=== PATIENT | female | born 1980 | race Caucasian/White ===

== ENCOUNTER 2022-01-09 17:32 | Emergency (ER) | payer OTHER, SELFPAY ==
--- NOTE | ~2022-01-09 | CT_ITS ---
EXAMINATION: CT brain wo con DATE: 01/09/2022 17:46 INDICATION: Headache, significantly worsened after an episode of coughing, accompanied by nausea and vomiting. Family history of cerebral aneurysm. TECHNIQUE: Computed tomography (CT) of the head was performed without intravenous contrast. The mA wa s adjusted according to patient size. Iterative reconstruction technique was employed. The dose-lengt h product was 605.33 mGy-cm. COMPARISON: None FINDINGS: Irregular 2-3 mm thick hyperdensity along the right tentorium, similar change but less pronounced on the left medial tentorium. No hydrocephalus, mass, or herniation. No acute ischemic infarct. Unremarkable dural venous sinus attenuation. No acute osseous abnormality. The aerated spaces are clear. IMPRESSION: Thin subdural hemorrhage along the tentorium. Findings not typical for aneurysmal hemorrhage. In the absence of traumatic history, consideration could be given to MR or CT Venogram of the head to evalua te the dural venous sinuses, particularly if there is a history of hypercoagulability or dehydration. Results reported telephonically to Daphnie Mccabe PA-C by Dr. Vasques at 6:10 PM on 01/09/2022. Reviewed, dictated and finalized at location [facility]. IMPRESSION: Thin subdural hemorrhage along the tentorium. Findings not typical for aneurysm al hemorrhage. In the absence of traumatic history, consideration could be give n to MR or CT Venogram of the head to evaluate the dural venous sinuses, partic ularly if there is a history of hypercoagulability or dehydration. Results reported telephonically to Daphnie Mccabe PA-C by Dr. Vasques at 6:10 PM o n 01/09/2022.
[2022-01-09 17:13] VITALS: BP 124/80; PULSE 83; RESP 16; TEMP 36.3; O2SAT 99
--- NOTE | 2022-01-09 17:38 | ED.HA ---
HPI - Headache General Chief Complaint: Headache Stated Complaint: n/v headache Source: patient Mode of arrival: wheelchair Limitations: no limitations History of Present Illness HPI Narrative: This is a 41-year-old female that presents to the emergency department for a headache. Ongoing since last night. Associated with nausea and vomiting. Reports she coughed today which suddenly made the headache worse. She has not taken anything for pain yet today. Denies fever, vision changes, or focal numbness or weakness. Related Data Home Medications Medication Instructions Recorded Confirmed No Home Medications 01/09/22 01/09/22 Allergies Allergy/AdvReac Type Severity Reaction Status Date / Time No Known Allergies Allergy Verified 01/09/22 18:53 Review of Systems Review of Systems: CONSTITUTIONAL: Denies fever EYES: Denies visual changes ENT: Reports congestion RESPIRATORY: Reports cough GASTROINTESTINAL: Reports nausea, vomiting SKIN: Denies rash NEUROLOGIC: Reports headache. Denies numbness, or weakness. All systems reviewed & are unremarkable except as noted in HPI and below PMFSH Past Medical History Medical History (Updated 01/09/22 @ 18:42 by Daphnie Mccabe PA-C) No active medical problems Social History Social History (Updated 01/09/22 @ 17:38 by Daphnie Mccabe PA-C) Smoking status: Never smoker Substance use: never Exam Narrative: GENERAL: Well-appearing, well-nourished, actively vomiting HEAD: Normocephalic, atraumatic. EYES: PERRLA and EOMI. ENT: Nares clear, no rhinorrhea or epistaxis. Mucous membranes moist. Oropharynx without tonsillar hypertrophy exudate or other lesions. Bilateral TMs pearly costello non-bulging NECK: Supple. No adenopathy or masses. CHEST: Clear to auscultation. No respiratory distress. No wheezes rales or rhonchi HEART: Regular rate and rhythm. No murmur heard. Normal peripheral pulses. EXTREMITIES: Normal range of motion. No edema. Strength equal in bilateral upper and lower extremities (5/5) SKIN: Warm, dry, no rash. NEURO: No focal deficits. Alert and oriented x3. Cranial nerves II through XII grossly intact PSYCH: Normal mood and affect Course Consultations Consultation #1: Spoke with ER Dr. Desai at [facility] who accepts transfer Date: 01/09/22 Time: 18:39 Vital Signs Vital signs: Vital Signs Temperature 97.3 F L 01/09/22 17:13 Pulse Rate 83 01/09/22 17:13 Respiratory Rate 16 01/09/22 17:13 Blood Pressure 124/80 01/09/22 17:13 Pulse Oximetry 99 01/09/22 17:13 Oxygen Delivery Room Air 01/09/22 17:13 Temperature 97.3 F L 01/09/22 17:13 Pulse Rate 93 01/09/22 19:13 Respiratory Rate 16 01/09/22 19:13 Blood Pressure 111/77 01/09/22 19:13 Pulse Oximetry 100 01/09/22 19:13 Oxygen Delivery Room Air 01/09/22 17:13 MDM - Headache MDM Narrative Medical decision making narrative: Patient presents to the emergency department for sudden onset headache associated with nausea and vomiting. Denies any recent injury or trauma. She is not on any anticoagulation. She is afebrile and nontoxic-appearing. Vitals are normal. She is neurologically intact. CT scan of the brain shows thin subdural hemorrhage along the tentorium. Patient was updated on case findings. Spoke with ER Dr. Desai at [facility] who accepts transfer for further management at tertiary care facility. Lab Data Attestation: I reviewed the patient's lab results. Result diagrams: 01/09/22 18:01 01/09/22 18:01 Labs: Lab Results 01/09/22 01/09/22 01/09/22 Range/Units 18:01 18:01 18:01 WBC 13.9 H (4.5-10.0) K/mm3 RBC 4.33 (4.2-5.4) M/mm3 Hgb 12.3 (12.0-15.0) g/dL Hct 36.1 L (37.0-47.0) % MCV 83.4 (80-100) fl MCH 28.4 (26-34) pg MCHC 34.1 (32-36) g/dl RDW 12.8 (11.5-14.5) % Plt Count 283 (150-375) k/mm3 MPV 10.0 (7.4-10.4) fl Immature Gran % (Auto) 0.4 (0-0.5) % Ne
[2022-01-09] MEDS: diphenhydrAMINE HCl INJ 50 MG/ML VIAL 25 MG IV PUSH (17:53)
[2022-01-09] MEDS: METOCLOPRAMIDE HCL INJ 10 MG/2 ML VIAL IV PUSH (17:53)
[2022-01-09] MEDS: SODIUM CHLORIDE 0.9% IV 1,000 ML 999 ML IV CONT (17:54)
[2022-01-09 18:09] LABS: Basophils Absolute Auto 0.1 K/mm3 (0.0-0.1); Basophils Percent Auto 0.6 % (0.2-1.2); Eosinophils Percent Auto 0.3 % (0-4.4); Hematocrit 36.1 % (37.0-47.0); Hemoglobin 12.3 g/dL (12.0-15.0); Immature Granulocyte Absolute 0.05 K/mm3 (0.00-0.031); Immature Granulocyte Percent A 0.4 % (0-0.5); Lymphocytes Absolute Auto 1.87 K/mm3 (0.9-3.2); Lymphocytes Percent Auto 13.5 % (18.3-44.2); Mean Corpuscular HGB Conc 34.1 g/dl (32-36); Mean Corpuscular Hemoglobin 28.4 pg (26-34); Mean Corpuscular Volume 83.4 fl (80-100); Monocytes Absolute Auto 0.8 K/mm3 (0.1-0.6); Monocytes Percent Auto 5.7 % (2.6-8.5); Neutrophils Absolute Auto 11.1 K/mm3 (1.3-6.7); Neutrophils Percent Auto 79.5 % (45.5-73.1); Platelet Count Result 283 k/mm3 (150-375); Red Blood Count 4.33 M/mm3 (4.2-5.4); Red Cell Distribution Width 12.8 % (11.5-14.5); White Blood Count 13.9 K/mm3 (4.5-10.0)
[2022-01-09 18:20] LABS: Prothrombin Time 13.1 Seconds (11.1-14.7)
[2022-01-09 18:23] LABS: Alanine Aminotransferase 8 U/L (6-35); Albumin Level 4.2 g/dL (3.5-5.1); Alkaline Phosphatase 51 U/L (38-126); Anion Gap 11 mmol/L (8-16); Aspartate Amino Transferase 17 U/L (14-36); Bilirubin,Total 0.3 mg/dL (0.2-1.3); Blood Urea Nitrogen 12 mg/dL (7-17); Carbon Dioxide 19 mmol/L (22-30); Chloride 104 mmol/L (98-107); Estimated CRCL calculation 82 ml/min; Estimated Glomerular Filt Rate > 60; Glucose 136 mg/dL (65-110); Potassium 3.7 mmol/L (3.4-5.0); Sodium 134 mmol/L (137-145)
[2022-01-09 18:51] VITALS: BP 123/68; PULSE 98; RESP 16; O2SAT 99
--- NOTE | 2022-01-09 19:08 | PC.NURSE ---
cancelled [facility]
[2022-01-09 19:13] VITALS: BP 111/77; PULSE 93; RESP 16; O2SAT 100
--- NOTE | 2022-01-09 19:23 | PC.NURSE ---
[facility] here
== END 2022-01-09 19:30 | disposition short-term general hospital (02) ==
PROVIDERS: Physician Assistant; Emergency Provider Emergency Medicine
DX: I62.00 Nontraumatic subdural hemorrhage, unspecified (principal)
CPT/HCPCS: 36415; 70450; 80053; 85025; 85610; 85730; 96365; 96375; 99291; J0131; J1200; J2765; J7030